=== PATIENT | male | born 1960 | race Caucasian/White ===

== ENCOUNTER → 2018-03-24 09:35 | Outpatient (CLI) | payer SELFPAY ==
[2018-03-24 11:11] LABS: AST(SGOT) 22 U/L (15-37); Alanine Aminotransfer ALT/SGPT 32 U/L (16-61); Albumin, Serum 3.9 g/dL (3.2-5.0); Alkaline Phosphatase 96 U/L (45-117); Bilirubin, Direct 0.12 mg/dL (0.00-0.30); Cholesterol 168 mg/dL (200); Globulin 4.2 g/dL (2.2-4.2); High Density Lipoprotein 64 mg/dL; Protein, Total 8.1 g/dL (6.4-8.2); Triglycerides 70 mg/dL; Very Low Density Lipoprotein 14 mg/dL (5-40)
== END ==
LOC: LAB 09:38
PROVIDERS: Family Provider Internal Medicine; PCP Internal Medicine; Referring Provider Nurse Practitioner Family; Visit Provider Nurse Practitioner Family
DX: E78.00 Pure hypercholesterolemia, unspecified (principal); I25.10 Atherosclerotic heart disease of native coronary artery without angina pectoris
CPT/HCPCS: 36415; 80061; 80076

== ENCOUNTER → 2018-09-26 10:24 | Outpatient (CLI) | payer SELFPAY ==
[2018-09-26 09:39] VITALS: BMI 25.4
[2018-09-26 11:50] LABS: AST(SGOT) 23 U/L (15-37); Alanine Aminotransfer ALT/SGPT 30 U/L (16-61); Alkaline Phosphatase 91 U/L (45-117); Bilirubin, Direct 0.16 mg/dL (0.00-0.30); Cholesterol 146 mg/dL (200); Globulin 4.1 g/dL (2.2-4.2); High Density Lipoprotein 67 mg/dL; Protein, Total 8.1 g/dL (6.4-8.2); Triglycerides 65 mg/dL; Very Low Density Lipoprotein 13 mg/dL (5-40)
== END ==
PROVIDERS: Family Provider Internal Medicine; PCP Internal Medicine; Referring Provider Nurse Practitioner Family; Visit Provider Nurse Practitioner Family
DX: E78.00 Pure hypercholesterolemia, unspecified (principal)
CPT/HCPCS: 36415; 80061; 80076

== ENCOUNTER → 2020-06-29 07:38 | Outpatient (CLI) | payer SELFPAY ==
[2020-06-28 14:38] VITALS: BMI 26.9
[2020-06-29 08:33] LABS: AST(SGOT) 30 U/L (15-37); Alanine Aminotransfer ALT/SGPT 38 U/L (16-61); Alkaline Phosphatase 86 U/L (45-117); Bilirubin, Direct 0.09 mg/dL (0.00-0.30); Cholesterol 183 mg/dL (200); Globulin 3.9 g/dL (2.2-4.2); High Density Lipoprotein 62 mg/dL; Protein, Total 7.9 g/dL (6.4-8.2); Triglycerides 121 mg/dL; Very Low Density Lipoprotein 24 mg/dL (5-40)
== END ==
PROVIDERS: Referring Provider Internal Medicine Cardiovascular Disease; Visit Provider Internal Medicine Cardiovascular Disease
DX: E78.00 Pure hypercholesterolemia, unspecified (principal)
CPT/HCPCS: 36415; 80061; 80076

== ENCOUNTER → 2021-12-27 | Outpatient (CLI) | payer SELFPAY ==
[2021-12-27 10:07] LABS: AST(SGOT) 25 U/L (15-37); Alanine Aminotransfer ALT/SGPT 34 U/L (16-61); Albumin, Serum 3.6 g/dL (3.2-5.0); Alkaline Phosphatase 83 U/L (45-117); Bilirubin, Direct 0.12 mg/dL (0.00-0.30); Cholesterol 148 mg/dL (200); Globulin 4.2 g/dL (2.2-4.2); High Density Lipoprotein 54 mg/dL; Protein, Total 7.8 g/dL (6.4-8.2); Triglycerides 83 mg/dL; Very Low Density Lipoprotein 17 mg/dL (5-40)
== END | disposition home or self-care (01) ==
PROVIDERS: Referring Provider Internal Medicine Cardiovascular Disease; Visit Provider Internal Medicine Cardiovascular Disease
DX: E78.00 Pure hypercholesterolemia, unspecified (principal)
CPT/HCPCS: 36415; 80061; 80076

== ENCOUNTER → 2023-06-12 | Outpatient (CLI) | payer SELFPAY ==
--- OUTSIDE RECORDS SUMMARY | 2023-06-12 09:49 | XMS RPT_ITS | CCD ---
Author Name Unknown Address [address] [place] [id number] Organization [facility] Care Team Providers Care Beader Tender Name Role Phone Pete Prabhakar Blake Unavailable Unavailable Medications Completed/Discontinued Medications Medication Drug Class(es) Dates Sig (Normalized) Sig (Original) 200 actuat albuterol 0.09 mg/actuat metered dose inhaler (2 sources) beta2-Adrenergic Agonist Start: 10-08-2010 End: 07-02-2014 PROVENTIL HFA AERS 90 mcg/inh - 2 puffs 4 X daily as needed ALBUTEROL SULFATE AERS [id number] Tate Fonseca MD amLODIPine 2.5 mg oral tablet (4 sources) Dihydropyridine Calcium Channel Matilda Start: 07-02-2014 take 1 tablet by mouth once daily AMLODIPINE BESYLATE 5 MG TABS One tablet by mouth daily AMLODIPINE BESYLATE [id number] Tate Fonseca MD Problems Active Problems Problem Classification Problem Date Documented Da te Episodic/Chronic Cardiac dysrhythmias (1 source) Sinus bradycardia; Translations: [Sinoatrial node dysfunction] Onset: 10-08-2010 10-08-2010 Chronic Coronary atherosclerosis and other heart disease (1 source) Coronary atherosclerosis; Translations: [Atherosclerotic heart disease of [place] coronary artery without angina pectoris] Onset: 10-08-2010 10-08-2010 Chronic Disorders of lipid metabolism (1 source) Hyperlipidemia; Translations: [Hyperlipidemia, unspecified] Onset: 10-08-2010 10-08-2010 Chronic Essential hypertension (1 source) Hypertensive disorder; Translations: [Essential (primary) hypertension] Onset: 10-08-2010 10-08-2010 Chronic Unclassified (1 source) Long-term drug therapy; Translations: [Other care home (current) drug therapy] Onset: 10-08-2010 10-08-2010 Past or Other Problems Problem Classification Problem Date Documented Da te Episodic/Chronic Coronary atherosclerosis and other heart disease (1 source) Coronary angioplasty status; Translations: [Coronary angioplasty status] Onset: 10-08-2010 10-08-2010 Episodic Fracture of upper limb (1 source) Displaced fracture of shaft of right clavicle, initial encounter for closed fracture; Translations: [Displaced fracture of shaft of right clavicle, initial encounter for closed fracture] Onset: 12-11-2015 12-16-2015 Episodic Other fractures (1 source) Displaced fracture of shaft of right clavicle, subsequent encounter for fracture with routine healing; Translations: [Displaced fracture of shaft of right clavicle, subsequent encounter for fracture with routine healing] Onset: 12-18-2015 12-25-2015 Episodic Other nutritional; endocrine; and metabolic disorders (1 source) Body mass index (BMI) 28.0-28.9, adult; Translations: [Body mass index (BMI) 28.0-28.9, adult] Onset: 02-03-2016 02-03-2016 Episodic Results Test Name Value Interpretation Reference Range Facil ity Vital Signs Date Time Vital Sign Value Performing Clinician Raymundo reynoso 02-03-2016 15:50-0400 Heart rate 58 /min [facility] Work Phone: 02-03-2016 15:40-0400 BMI (Body Mass Index) 28.72 kg/m2 [facility] Work Phone: 02-03-2016 15:40-0400 BP Diastolic 70 mm[Hg] Risk I/Ois [facility] Work Phone: 02-03-2016 15:40-0400 BP Systolic 138 mm[Hg] Satellier DeFinis [facility] Work Phone: 02-03-2016 15:40-0400 BSA (Body Surface Area) 2.18 m2 Risk I/Ois [facility] Work Phone: 02-03-2016 15:40-0400 Pulse (Heart Rate) 58 /min [facility] Work Phone: 02-03-2016 15:40-0400 Respiratory Rate 18 /min Risk I/Ois [facility] Work Phone: 02-03-2016 15:40-0400 Weight 96.07 kg Pete Prabhakar [facility] Work Phone: 11-04-2012 08:55-0400 Heart rate 420 ms Pete [facility] Work Phone: 10-14-2011 09:36-0400 Height 182.88 cm Pete [facility] Work Phone: Procedures Date Procedure Procedure Detail Performing Clinician Start: 02-03-2016 End: 02-03-2016 Ecg routine ecg w/least 12 lds w/i&r Jessica Munroe PA-C Work Phone: Start: 02-03-2016 End: 02-03-2016 Follow Up Appt 6 months Jessica hall PA-C Work Phone: Start: 02-03-2016 End: 02-03-2016 PFM Jessica Munroe PA-C Work Phone: Start: 01-22-2016 End: 01-22-2016 Dietary management education, guidance, and counseling Pete Prabhakar Start: 01-22-2016 End: 02-17-2016 *Hepatic Function Panel Tate Fonseca MD Start: 01-22-2016 End: 02-17-2016 Lipid 1996 panel - Serum or Plasma Tate Fonseca MD Start: 07-15-2015 End: 07-23-2015 *Hepatic Function Panel Tate Fonseca MD Start: 07-15-2015 End: 07-15-2015 Follow Up Appt 6 months Tate Fonseca MD Start: 07-15-2015 End: 07-23-2015 Lipid 1996 panel - Serum or Plasma Tate Fonseca MD Start: 07-15-2015 End: 07-15-2015 MMM Tate Fonseca MD Start: 01-31-2015 End: 07-23-2015 *BMP Jessica Munroe PA-C Work Phone: Start: 01-01-2015 End: 01-17-2015 *BMP Jessica Munroe PA-C Work Phone: Start: 01-01-2015 End: 01-02-2015 Documentation of current medications Jessica Munroe PA-C Work Phone: Start: 01-01-2015 End: 01-01-2015 Follow Up Appt 6 months Jessica hall PA-C Work Phone: Start: 01-01-2015 End: 01-01-2015 Follow Up BP Check Jessica Munroe PA-C Work Phone: Start: 01-01-2015 End: 01-01-2015 PFM Jessica Munroe PA-C Work Phone: Start: 08-15-2014 End: 08-15-2014 Follow Up BP Check Jessica Munroe PA-C Work Phone: Start: 08-14-2014 End: 08-14-2014 Follow Up BP Check Jessica Munroe PA-C Work Phone: Start: 08-10-2014 End: 08-10-2014 Follow Up BP Check Tate Fonseca MD Start: 08-08-2014 End: 08-08-2014 Follow Up BP Check Tate Fonseca MD Start: 08-06-2014 End: 08-08-2014 Follow Up BP Check Tate Fonseca MD Start: 07-02-2014 End: 07-09-2014 *Hepatic Function Panel Tate Fonseca MD Start: 07-02-2014 End: 07-03-2014 Documentation of current medications Tate Fonseca MD Start: 07-02-2014 End: 08-06-2014 Ecg routine ecg w/least 12 lds w/i&r Tate Fonseca MD Start: 07-02-2014 End: 07-16-2014 Follow Up BP Check Tate Fonseca MD Start: 07-02-2014 End: 07-09-2014 Lipid 1996 panel - Serum or Plasma Tate Fonseca MD Start: 07-02-2014 End: 07-02-2014 MMM Tate Fonseca MD Start: 12-19-2012 End: 08-06-2014 *Hepatic Function Panel Jessica hall PA-C Work Phone: Start: 12-19-2012 End: 08-06-2014 Lipid 1996 panel - Serum or Plasma Jessica Munroe PA-C Work Phone: Start: 11-04-2012 End: 11-04-2012 *BMP Jessica Munroe PA-C Work Phone: Start: 11-04-2012 End: 11-14-2012 *Hepatic Function Panel Jessica hall PA-C Work Phone: Start: 11-04-2012 End: 11-04-2012 Ecg routine ecg w/least 12 lds w/i&r Jessica Munroe PA-C Work Phone: Start: 11-04-2012 End: 11-14-2012 Lipid 1996 panel - Serum or Plasma Jessica Munroe PA-C Work Phone: Start: 11-04-2012 End: 11-04-2012 PFM Jessica Munroe PA-C Work Phone: Start: 04-25-2012 End: 11-04-2012 *Hepatic Function Panel Tate Fonseca MD Start: 04-25-2012 End: 04-25-2012 Follow Up Appt 6 months Tate Fonseca MD Start: 04-25-2012 End: 11-04-2012 Lipid 1996 panel - Serum or Plasma Tate Fonseca MD Start: 10-14-2011 End: 10-24-2012 *Hepatic Function Panel Tate Fonseca MD Start: 10-14-2011 End: 10-14-2011 Ecg routine ecg w/least 12 lds w/i&r Tate Fonseca MD Start: 10-14-2011 End: 10-14-2011 Follow Up Appt 6 months Tate Fonseca MD Start: 10-14-2011 End: 10-24-2012 Lipid 1996 panel - Serum or Plasma Tate Fonseca MD Start: 08-13-2011 End: 10-24-2012 Ecg routine ecg w/least 12 lds w/i&r Tate Fonseca MD Start: 08-13-2011 End: 10-24-2012 Lipid 1996 panel - Serum or Plasma Tate Fonseca MD Plan of Treatment Date Care Activity Detail Author Start: 12-09-2016 End: 12-09-2016 Appointment Appointment [facility] Work Phone: Start: 08-17-2016 End: 02-18-2016 *Hepatic Function Panel *Hepatic Function Panel [facility] Work Phone: Start: 08-17-2016 End: 02-18-2016 Lipid 1996 panel *Lipid Profile CC PCP [facility] Work Phone: Start: 02-03-2016 End: 02-03-2016 Ecg routine ecg w/least 12 lds w/i&r EKG (In office) [facility] Work Phone: Start: 02-03-2016 End: 02-03-2016 Follow Up Appt 6 months Follow Up Appt 6 months [facility] Work Phone: Start: 02-03-2016 End: 02-03-2016 PFM PFM [facility] Work Phone: Start: 01-22-2016 End: 02-17-2016 *Hepatic Function Panel *Hepatic Function Panel [facility] Work Phone: Start: 01-22-2016 End: 02-17-2016 Lipid 1996 panel *Lipid Profile CC PCP [facility] Work Phone: Start: 01-22-2016 End: 01-22-2016 Radex clavicle complete X-Ray, Clavicle [facility] Work Phone: Start: 12-25-2015 End: 12-25-2015 Radex clavicle complete X-Ray, Clavicle [facility] Work Phone: Start: 12-18-2015 End: 12-18-2015 Radex clavicle complete X-Ray, Clavicle [facility] Work Phone: Start: 07-15-2015 End: 07-23-2015 *Hepatic Function Panel *Hepatic Function Panel [facility] Work Phone: Start: 07-15-2015 End: 07-15-2015 Follow Up Appt 6 months Follow Up Appt 6 months [facility] Work Phone: Start: 07-15-2015 End: 07-23-2015 Lipid 1996 panel *Lipid Profile CC PCP [facility] Work Phone: Start: 07-15-2015 End: 07-15-2015 MMM MMM [facility] Work Phone: Start: 01-31-2015 End: 07-23-2015 *BMP *BMP [facility] Work Phone: Start: 01-01-2015 End: 01-17-2015 *BMP *BMP [facility] Work Phone: Start: 01-01-2015 End: 01-01-2015 Follow Up Appt 6 months Follow Up Appt 6 months [facility] Work Phone: Start: 01-01-2015 End: 01-01-2015 Follow Up BP Check Follow Up BP Check [facility] Work Phone: Start: 01-01-2015 End: 01-01-2015 PFM PFM [facility] Work Phone: Start: 08-15-2014 End: 08-15-2014 Follow Up BP Check Follow Up BP Check [facility] Work Phone: Start: 08-14-2014 End: 08-14-2014 Follow Up BP Check Follow Up BP Check [facility] Work Phone: Start: 08-10-2014 End: 08-10-2014 Follow Up BP Check Follow Up BP Check [facility] Work Phone: Start: 08-08-2014 End: 08-08-2014 Follow Up BP Check Follow Up BP Check [facility] Work Phone: Start: 08-06-2014 End: 08-08-2014 Follow Up BP Check Follow Up BP Check [facility] Work Phone: Start: 07-02-2014 End: 07-09-2014 *Hepatic Function Panel *Hepatic Function Panel [facility] Work Phone: Start: 07-02-2014 End: 08-06-2014 Ecg routine ecg w/least 12 lds w/i&r EKG (In office) [facility] Work Phone: Start: 07-02-2014 End: 07-02-2014 Follow Up Appt 6 months Follow Up Appt 6 months [facility] Work Phone: Start: 07-02-2014 End: 07-16-2014 Follow Up BP Check Follow Up BP Check [facility] Work Phone: Start: 07-02-2014 End: 07-09-2014 Lipid 1996 panel *Lipid Profile CC PCP [facility] Work Phone: Start: 07-02-2014 End: 07-02-2014 MMM MMM [facility] Work Phone: Start: 12-19-2012 End: 08-06-2014 *Hepatic Function Panel *Hepatic Function Panel [facility] Work Phone: Start: 12-19-2012 End: 08-06-2014 Lipid 1996 panel *Lipid Profile CC PCP [facility] Work Phone: Start: 11-04-2012 End: 11-04-2012 *BMP *BMP [facility] Work Phone: Start: 11-04-2012 End: 11-14-2012 *Hepatic Function Panel *Hepatic Function Panel [facility] Work Phone: Start: 11-04-2012 End: 11-04-2012 Ecg routine ecg w/least 12 lds w/i&r EKG (In office) [facility] Work Phone: Start: 11-04-2012 End: 11-04-2012 Follow Up Appt 6 months Follow Up Appt 6 months [facility] Work Phone: Start: 11-04-2012 End: 11-14-2012 Lipid 1996 panel *Lipid Profile CC PCP [facility] Work Phone: Start: 11-04-2012 End: 11-04-2012 PFM PFM [facility] Work Phone: Start: 04-25-2012 End: 11-04-2012 *Hepatic Function Panel *Hepatic Function Panel [facility] Work Phone: Start: 04-25-2012 End: 04-25-2012 Follow Up Appt 6 months Follow Up Appt 6 months [facility] Work Phone: Start: 04-25-2012 End: 11-04-2012 Lipid 1996 panel *Lipid Profile [facility] Work Phone: Start: 10-14-2011 End: 10-24-2012 *Hepatic Function Panel *Hepatic Function Panel [facility] Work Phone: Start: 10-14-2011 End: 10-14-2011 Ecg routine ecg w/least 12 lds w/i&r EKG (In office) [facility] Work Phone: Start: 10-14-2011 End: 10-14-2011 Follow Up Appt 6 months Follow Up Appt 6 months [facility] Work Phone: Start: 10-14-2011 End: 10-24-2012 Lipid 1996 panel *Lipid Profile [facility] Work Phone: Start: 08-13-2011 End: 10-24-2012 *Hepatic Function Panel *Hepatic Function Panel [facility] Work Phone: Start: 08-13-2011 End: 10-24-2012 Lipid 1996 panel *Lipid Profile [facility] Work Phone: Patient Education [facility] Work Phone: Additional Source Comments FOR RECORDS PERTAINING TO PATIENTS WHO ARE OR HAVE BEEN ENROLLED IN A CHEMICAL DEPENDENCY/SUBSTANCEABUSE PROGRAM, SOME INFORMATION MAY BE OMITTED. This clinical summary was aggregated from multiple sources. Caution should be exercised in using it in the provision of clinical care. This summary normalizes information from multiple sources, and as a consequence, information in this document may materially change the coding, format and clinical context of patient data. In addition, data may be omitted in some cases. CLINICAL DECISIONS SHOULD BE BASED ON THE PRIMARY CLINICAL RECORDS. [employer] [facility]. provides no warranty or guarantee of the accuracy or completeness of information in this document.
[2023-06-12 10:47] LABS: Absolute Lymphocyte Count 1.68 X10^3/uL (0.83-4.51); Absolute Neutrophil Count 4.2 X10^3/uL (2.0-7.7); Basophil# 0.07 X10^3/uL; Eosinophil# 0.12 X10^3/uL; Eosinophils% 1.7 % (0-5); Hematocrit 45.3 % (40-54); Hemoglobin 15.4 g/dL (13.0-16.5); Lymphocyte # 1.68 X10^3/ul (0.83-4.51); Lymphocyte % 24.3 % (19-41); Mean Corpuscular Hgb 30.4 pg (27.0-32.0); Mean Corpuscular Volume 89.5 fL (80-94); Mean Platelet Vol. 9.8 fl (6.2-12.0); Monocyte# 0.76 X10^3/uL; NRBC Flagged by Analyzer 0 % (0-5); Neutrophil # 4.24 X10^3/uL (2.7-7.7); Neutrophil % 61.3 % (47-70); Platelet Count 302 K/mm3 (150-450); RBC Distribution Width CV 12.7 % (11.6-14.6); RBC Distribution Width SD 41.7 fl (35.1-43.9); Red Blood Count 5.06 M/mm3 (4.6-6.2); White Blood Count 6.9 K/mm3 (4.4-11.0)
[2023-06-12 11:27] LABS: AST(SGOT) 23 U/L (15-37); Alanine Aminotransfer ALT/SGPT 29 U/L (16-61); Albumin, Serum 3.6 g/dL (3.2-5.0); Alkaline Phosphatase 83 U/L (45-117); Anion Gap 6 (5-15); BUN 13 mg/dL (7-18); BUN/Creat Ratio 10.9 RATIO (10-20); Bilirubin, Direct 0.23 mg/dL (0.00-0.30); Calcium,Total 9.1 mg/dL (8.5-10.1); Chloride 95 mmol/L (98-107); Cholesterol 151 mg/dL (200); Creatinine, Serum 1.19 mg/dL (0.70-1.30); EST Glomerular Filtration Rate 66 mL/min (>60); Est Glom Filt Rate - Afr Amer 80 mL/min (>60); Free T3 3.1 pg/mL (2.18-3.98); Glucose 117 mg/dL (74-106); High Density Lipoprotein 59 mg/dL; Magnesium 2.2 mg/dL (1.6-2.6); Potassium 3.4 mmol/L (3.5-5.1); Protein, Total 7.6 g/dL (6.4-8.2); Sodium Level 128 mmol/L (136-145); T4 Free Direct 1.02 ng/dL (0.76-1.46); Thyroid Stim Hormone (TSH) 1.15 uIU/mL (0.358-3.74); Triglycerides 95 mg/dL; Very Low Density Lipoprotein 19 mg/dL (5-40)
== END | disposition home or self-care (01) ==
PROVIDERS: Referring Provider Nurse Practitioner Gerontology; Visit Provider Nurse Practitioner Gerontology
DX: E78.00 Pure hypercholesterolemia, unspecified (principal); I48.91 Unspecified atrial fibrillation
CPT/HCPCS: 36415; 80048; 80061; 80076; 83735; 84439; 84443; 84481; 85025

== ENCOUNTER → 2023-06-26 | Outpatient (CLI) | payer SELFPAY ==
--- OUTSIDE RECORDS SUMMARY | 2023-06-26 08:52 | XMS RPT_ITS | CCD ---
Author Name Unknown Address [address] [place] [id number] Organization [facility] Care Team Providers Care Security Control Room Officer Name Role Phone Pete Prabhakar Blake Unavailable Unavailable Medications Completed/Discontinued Medications Medication Drug Class(es) Dates Sig (Normalized) Sig (Original) 200 actuat albuterol 0.09 mg/actuat metered dose inhaler (2 sources) beta2-Adrenergic Agonist Start: 10-08-2010 End: 07-02-2014 PROVENTIL HFA AERS 90 mcg/inh - 2 puffs 4 X daily as needed ALBUTEROL SULFATE AERS [id number] Tate Fonseca MD amLODIPine 2.5 mg oral tablet (4 sources) Dihydropyridine Calcium Channel Matilda Start: 07-02-2014 take 1 tablet by mouth once daily AMLODIPINE BESYLATE 5 MG TABS One tablet by mouth daily AMLODIPINE BESYLATE [id number] Tate Fonseca MD Problems Active Problems Problem Classification Problem Date Documented Da te Episodic/Chronic Cardiac dysrhythmias (1 source) Sinus bradycardia; Translations: [Sinoatrial node dysfunction] Onset: 10-08-2010 10-08-2010 Chronic Coronary atherosclerosis and other heart disease (1 source) Coronary atherosclerosis; Translations: [Atherosclerotic heart disease of [place] coronary artery without angina pectoris] Onset: 10-08-2010 10-08-2010 Chronic Disorders of lipid metabolism (1 source) Hyperlipidemia; Translations: [Hyperlipidemia, unspecified] Onset: 10-08-2010 10-08-2010 Chronic Essential hypertension (1 source) Hypertensive disorder; Translations: [Essential (primary) hypertension] Onset: 10-08-2010 10-08-2010 Chronic Unclassified (1 source) Long-term drug therapy; Translations: [Other bed bug exterminator (current) drug therapy] Onset: 10-08-2010 10-08-2010 Past [...] reynoso 02-03-2016 15:50-0400 Heart rate 58 /min [facility] Work Phone: 02-03-2016 15:40-0400 BMI (Body Mass Index) 28.72 kg/m2 [facility] Work Phone: 02-03-2016 15:40-0400 BP Diastolic 70 mm[Hg] [facility] Work Phone: 02-03-2016 15:40-0400 BP Systolic 138 mm[Hg] [employer] DeFinis [facility] Work Phone: 02-03-2016 15:40-0400 BSA (Body Surface Area) 2.18 m2 [facility] Work Phone: 02-03-2016 15:40-0400 Pulse (Heart Rate) 58 /min [facility] Work Phone: 02-03-2016 15:40-0400 Respiratory Rate 18 /min [facility] Work Phone: 02-03-2016 15:40-0400 Weight 96.07 kg Pete Prabhakar [facility] Work Phone: 11-04-2012 08:55-0400 Heart [...] End: 08-10-2014 Follow Up BP Check Tate Fonseac MD Start: 08-08-2014 End: 08-08-2014 Follow Up [...] Author Start: 12-09-2016 End: 12-09-2016 Appointment Appointment [facility] Work Phone: Start: 08-17-2016 End: 02-18-2016 *Hepatic Function Panel *Hepatic Function Panel [facility] Work Phone: Start: 08-17-2016 End: 02-18-2016 Lipid 1996 panel *Lipid Profile CC PCP [facility] Work Phone: Start: 02-03-2016 End: 02-03-2016 Ecg routine ecg w/least 12 lds w/i&r EKG (In office) [facility] Work Phone: Start: 02-03-2016 End: 02-03-2016 Follow Up Appt 6 months Follow Up Appt 6 months [facility] Work Phone: Start: 02-03-2016 End: 02-03-2016 PFM PFM [facility] Work Phone: Start: 01-22-2016 End: 02-17-2016 *Hepatic Function Panel *Hepatic Function Panel [facility] Work Phone: Start: 01-22-2016 End: 02-17-2016 Lipid 1996 panel *Lipid Profile CC PCP [facility] Work Phone: Start: 01-22-2016 End: 01-22-2016 Radex clavicle complete X-Ray, Clavicle [facility] Work Phone: Start: 12-25-2015 End: 12-25-2015 Radex clavicle complete X-Ray, Clavicle [facility] Work Phone: Start: 12-18-2015 End: 12-18-2015 Radex clavicle complete X-Ray, Clavicle [facility] Work Phone: Start: 07-15-2015 End: 07-23-2015 *Hepatic Function Panel *Hepatic Function Panel [facility] Work Phone: Start: 07-15-2015 End: 07-15-2015 Follow Up Appt 6 months Follow Up Appt 6 months [facility] Work Phone: Start: 07-15-2015 End: 07-23-2015 Lipid 1996 panel *Lipid Profile CC PCP [facility] Work Phone: Start: 07-15-2015 End: 07-15-2015 MMM MMM [facility] Work Phone: Start: 01-31-2015 End: 07-23-2015 *BMP *BMP [facility] Work Phone: Start: 01-01-2015 End: 01-17-2015 *BMP *BMP [facility] Work Phone: Start: 01-01-2015 End: 01-01-2015 Follow Up Appt 6 months Follow Up Appt 6 months [facility] Work Phone: Start: 01-01-2015 End: 01-01-2015 Follow Up BP Check Follow Up BP Check [facility] Work Phone: Start: 01-01-2015 End: 01-01-2015 PFM PFM [facility] Work Phone: Start: 08-15-2014 End: 08-15-2014 Follow Up BP Check Follow Up BP Check [facility] Work Phone: Start: 08-14-2014 End: 08-14-2014 Follow Up BP Check Follow Up BP Check [facility] Work Phone: Start: 08-10-2014 End: 08-10-2014 Follow Up BP Check Follow Up BP Check [facility] Work Phone: Start: 08-08-2014 End: 08-08-2014 Follow Up BP Check Follow Up BP Check [facility] Work Phone: Start: 08-06-2014 End: 08-08-2014 Follow Up BP Check Follow Up BP Check [facility] Work Phone: Start: 07-02-2014 End: 07-09-2014 *Hepatic Function Panel *Hepatic Function Panel [facility] Work Phone: Start: 07-02-2014 End: 08-06-2014 Ecg routine ecg w/least 12 lds w/i&r EKG (In office) [facility] Work Phone: Start: 07-02-2014 End: 07-02-2014 Follow Up Appt 6 months Follow Up Appt 6 months [facility] Work Phone: Start: 07-02-2014 End: 07-16-2014 Follow Up BP Check Follow Up BP Check [facility] Work Phone: Start: 07-02-2014 End: 07-09-2014 Lipid 1996 panel *Lipid Profile CC PCP [facility] Work Phone: Start: 07-02-2014 End: 07-02-2014 MMM MMM [facility] Work Phone: Start: 12-19-2012 End: 08-06-2014 *Hepatic Function Panel *Hepatic Function Panel [facility] Work Phone: Start: 12-19-2012 End: 08-06-2014 Lipid 1996 panel *Lipid Profile CC PCP [facility] Work Phone: Start: 11-04-2012 End: 11-04-2012 *BMP *BMP [facility] Work Phone: Start: 11-04-2012 End: 11-14-2012 *Hepatic Function Panel *Hepatic Function Panel [facility] Work Phone: Start: 11-04-2012 End: 11-04-2012 Ecg routine ecg w/least 12 lds w/i&r EKG (In office) [facility] Work Phone: Start: 11-04-2012 End: 11-04-2012 Follow Up Appt 6 months Follow Up Appt 6 months [facility] Work Phone: Start: 11-04-2012 End: 11-14-2012 Lipid 1996 panel *Lipid Profile CC PCP [facility] Work Phone: Start: 11-04-2012 End: 11-04-2012 PFM PFM [facility] Work Phone: Start: 04-25-2012 End: 11-04-2012 *Hepatic Function Panel *Hepatic Function Panel [facility] Work Phone: Start: 04-25-2012 End: 04-25-2012 Follow Up Appt 6 months Follow Up Appt 6 months [facility] Work Phone: Start: 04-25-2012 End: 11-04-2012 Lipid 1996 panel *Lipid Profile [facility] Work Phone: Start: 10-14-2011 End: 10-24-2012 *Hepatic Function Panel *Hepatic Function Panel [facility] Work Phone: Start: 10-14-2011 End: 10-14-2011 Ecg routine ecg w/least 12 lds w/i&r EKG (In office) [facility] Work Phone: Start: 10-14-2011 End: 10-14-2011 Follow Up Appt 6 months Follow Up Appt 6 months [facility] Work Phone: Start: 10-14-2011 End: 10-24-2012 Lipid 1996 panel *Lipid Profile [facility] Work Phone: Start: 08-13-2011 End: 10-24-2012 *Hepatic Function Panel *Hepatic Function Panel [facility] Work Phone: Start: 08-13-2011 End: 10-24-2012 Lipid 1996 panel *Lipid Profile [facility] Work Phone: Patient Education [facility] Work Phone: Additional Source [...] BE BASED ON THE PRIMARY CLINICAL RECORDS. [employer] [facility]. provides no warranty or guarantee of the accuracy or completeness of information in this document.
[2023-06-26 10:29] LABS: Anion Gap 6 (5-15); BUN 14 mg/dL (7-18); BUN/Creat Ratio 11.2 RATIO (10-20); Calcium,Total 9.2 mg/dL (8.5-10.1); Chloride 104 mmol/L (98-107); Creatinine, Serum 1.25 mg/dL (0.70-1.30); EST Glomerular Filtration Rate 62 mL/min (>60); Est Glom Filt Rate - Afr Amer 75 mL/min (>60); Glucose 111 mg/dL (74-106); Potassium 4.1 mmol/L (3.5-5.1); Sodium Level 134 mmol/L (136-145)
== END | disposition home or self-care (01) ==
PROVIDERS: Referring Provider Nurse Practitioner Gerontology; Visit Provider Nurse Practitioner Gerontology
DX: I10 Essential (primary) hypertension (principal)
CPT/HCPCS: 36415; 80048

== ENCOUNTER → 2023-09-17 | Outpatient (CLI) | payer SELFPAY ==
--- NOTE | 2023-09-17 12:53 | ECHOLC_ITS ---
Reason For Study: Afib/Flutter Procedure This was a limited 2D transthoracic echocardiogram. The study was technically difficult. Contrast injection was performed. Exam performed in department. Left Ventricle Normal LV size. Left ventricular systolic function is normal. The estimated ejection fraction is 60 %. No regional wall motion abnormalities noted. Right Ventricle Normal RV size. Normal systolic function. Atria The left atrium is moderately enlarged. The right atrium is mildly enlarged. Tricuspid Valve Normal tricuspid valve. Mild (1+) tricuspid valve insufficiency. Pulmonary artery systolic pressure is 30 mmHg. Aortic Valve Trisinus/trileaflet aortic valve. Pulmonic Valve The pulmonic valve is not well visualized. Great Vessels Normal aortic root. The pulmonary artery is normal size. Pericardium/Pleural No pericardial effusion. Medication 22 gauge I.V. with prn adaptor inserted into right arm. Diluted definity 2.5ml given slow IV push to enhance endocardial definition. MMode/2D Measurements & Calculations LVIDd: 5.2 cm IVSd: 0.73 cm Ao root diam: 3.2 cm LVIDs: 3.7 cm LVPWd: 0.80 cm LA dimension: 4.8 cm FS: 29.4 % LAV(MOD-bp): 88.3 ml LVAd ap4: 38.2 cm2 SV(MOD-sp4): 82.1 ml LAV(MOD-bp) Indexed: 38.7 ml/m2 LVLd ap4: 8.6 cm LAV(MOD-sp2): 80.3 ml EDV(MOD-sp4): 138.0 ml LAV(MOD-sp4): 95.0 ml EDV(sp4-el): 143.5 ml LVAs ap4: 21.8 cm2 LVLs ap4: 7.0 cm ESV(MOD-sp4): 55.9 ml ESV(sp4-el): 57.8 ml EF(MOD-sp4): 59.5 % EF(sp4-el): 59.7 % SV(sp4-el): 85.7 ml LA A4 area: 29.0 cm2 RA A4 area: 25.5 cm2 Doppler Measurements & Calculations TR max johanna: 260.6 cm/sec TR max P.2 mmHg ECHO/Echo Limited w/Contrast Interpretation Summary Normal LV size. Left ventricular systolic function is normal. The left atrium is moderately enlarged. The estimated ejection fraction is 60 %. Contrast injection was performed. Ordering Physician: Mara Jane Referring Physician: Mara Jane Performed By: Donis Sampson RCS
== END | disposition home or self-care (01) ==
PROVIDERS: Referring Provider Nurse Practitioner Gerontology; Visit Provider Nurse Practitioner Gerontology
DX: I48.91 Unspecified atrial fibrillation (principal); I51.7 Cardiomegaly
CPT/HCPCS: 93308; Q9957; A4216; C8924